=== PATIENT | male | born 1985 | race Caucasian/White ===

== ENCOUNTER 2016-08-14 03:09 | Emergency (ER) | payer OTHER ==
[2016-08-14 03:25] VITALS: BP 123/69; PULSE 70; RESP 16; TEMP 98.2; O2SAT 97
[2016-08-14] MEDS ORDERED: TDAP Vaccine 0.5 mL Syr IM ONE (04:06)
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
== END 2016-08-14 05:20 | disposition home or self-care (01) ==
LOC: H.ER 03:09
DX: S09.90XA Unspecified injury of head, initial encounter (principal); S49.91XA Unspecified injury of right shoulder and upper arm, initial encounter; T14.8 Other injury of unspecified body region; Y04.0XXA Assault by unarmed brawl or fight, initial encounter; Y92.89 Other specified places as the place of occurrence of the external cause